=== PATIENT | female | born 1980 | race Caucasian/White ===

== ENCOUNTER 2018-10-25 15:25 | Emergency (ER) | payer SELFPAY ==
[~2018-10-25] VITALS: Ht 160 cm; Wt 68.9 kg
[2018-10-25 15:39] VITALS: BP 137/81
--- NOTE | 2018-10-25 15:48 | PHYS DOC ---
Adult General Chief Complaint Chief Complaint: ABDOMINAL PAIN IN [facility] HPI Patient is a 37 year old [female] who presents with [lower abdominal cramping, small amount of blood in the positive recollecting. Patient reports she is partially weeks , reports changes, 2 weeks ago. Reports at 830 this morning, she had noted a small amount of blood on the toilet paper after wiping. Does report she had intercourse prior to this, this morning. States she has not had this in the past with her other pregnancies, she was a little concerned. Reports she is . Has not followed up with PCP yet. reports all of her pain is very low, near vaginal orifice. States some cramping. Denies abdominal discomfort. ] Review of Systems Review of Systems Constitutional: Denies fever or chills [] Respiratory: Denies cough or shortness of breath [] Cardiovascular: No additional information not addressed in HPI [] GI: Denies abdominal pain, nausea, vomiting, bloody stools or diarrhea [] : Denies dysuria or hematuria, only reports suprapubic discomfort and blood on toilet paper, no blood in urine today [] Musculoskeletal: Denies back pain or joint pain [] Integument: Denies rash or skin lesions [] Neurologic: Denies headache, focal weakness or sensory changes [] Endocrine: Denies polyuria or polydipsia [] All other systems were reviewed and found to be within normal limits, except as documented in this note. Allergies Allergies Allergies Coded Allergies Type Severity Reaction Last Updated Verified Sulfa (Sulfonamide Antibiotics) Allergy Intermediate 10/25/18 Yes Physical Exam Physical Exam Constitutional: Well developed, well nourished, no acute distress, non-toxic appearance. [] HENT: Normocephalic, atraumatic, bilateral external ears normal, oropharynx moist, no oral exudates, nose normal. [] Cardiovascular:Heart rate regular rhythm, no murmur [] Lungs & Thorax: Bilateral breath sounds clear to auscultation, faint wheeze noted to bases[] Abdomen: Bowel sounds normal, soft, no tenderness, no masses, no pulsatile masses. [] Skin: Warm, dry, no erythema, no rash. [] Back: No tenderness, no CVA tenderness. [] Extremities: No tenderness, no cyanosis, no clubbing, ROM intact, no edema. [] Neurologic: Alert and oriented X 3, normal motor function, normal sensory function, no focal deficits noted. [] Psychologic: Affect normal, judgement normal, mood normal. [] Current Patient Data Vital Signs Vital Signs Date Time Temp Pulse Resp B/P (MAP) Pulse Ox O2 Delivery O2 Flow Rate FiO2 10/25/18 15:39 98.6 105 16 137/81 (99) 99 Room Air 98.6 Lab Values Laboratory Tests Test 10/25/18 15:36 10/25/18 15:51 10/25/18 15:58 Urine Collection Type Unknown Urine Color Yellow Urine Clarity Cloudy Urine pH 6.5 Urine Specific [place] 1.025 Urine Protein Negative mg/dL (NEG-TRACE) Urine Glucose (UA) Negative mg/dL (NEG) Urine Ketones (Stick) Negative mg/dL (NEG) Urine Blood Trace (NEG) Urine Nitrite Negative (NEG) Urine Bilirubin Negative (NEG) Urine Urobilinogen Dipstick 1.0 mg/dL (0.2 mg/dL) Urine Leukocyte Esterase Negative (NEG) Urine RBC 0 /HPF (0-2) Urine WBC 0 /HPF (0-4) Urine Amorphous Sediment Present /HPF Urine Bacteria 0 /HPF (0-FEW) White Blood Count 12.4 x10^3/uL (4.0-11.0) H Red Blood Count 5.10 x10^6/uL (3.50-5.40) Hemoglobin 15.3 g/dL (12.0-15.5) Hematocrit 44.6 % (36.0-47.0) Mean Corpuscular Volume 87 fL (79-100) Mean Corpuscular Hemoglobin 30 pg (25-35) Mean Corpuscular Hemoglobin Concent 34 g/dL (31-37) Red Cell Distribution Width 14.5 % (11.5-14.5) Platelet Count 370 x10^3/uL (140-400) Neutrophils (%) (Auto) 68 % (31-73) Lymphocytes (%) (Auto) 22 % (24-48) L Monocytes (%) (Auto) 6 % (0-9) Eosinophils (%) (Auto) 2 % (0-3) Basophils (%) (Auto) 1 % (0-3) Neutrophils # (Auto) 8.5 x10^3/uL (1.8-7.7) H Lymphocytes # (Auto) 2.7 x10^3/uL (1.0-4.8) Monocytes # (Auto) 0.8 x10^3/uL (0.0-1.1) Eosinophils # (Auto) 0.2 x10^3/uL (0.0-0.7) Basophils # (Auto) 0.2 x10^3/uL (0.0-0.2) POC Urine HCG, Qualitative Hcg positive (Negative) Laboratory Tests 10/25/18 15:51 EKG EKG [] Radiology/Procedures Radiology/Procedures Pelvic Exam - No bleeding noted, cervical os noted closed. No discharge or purulence noted in vaginal vault. Gallery Assistant by RN. Well tolerated by patient[] Course & Med Decision Making Course & Med Decision Making Pertinent Labs and Imaging studies reviewed. (See chart for details) [Discussed findings and plan with patient, will consider ultrasound if any cervical changes noted on pelvic exam. Discussed intercourse likely cause of bleeding this morning. Low concern for ectopic , without noted discomfort to abdomen, no additional symptoms, no tachycardia, and cramping dis comfort only. Patient will follow up with OBGYN Following pelvic exam, reassure patient no findings noted in vaginal vault and cervical os appears closed without bleeding noted. Discussed options for blood tests, patient states she doesn't think that's necessary. Discussed intercourse likely cause of bleeding this morning, due to hormonal changes in causing decreased lubrication. Patient instructed to continue to use lubrication. She is taking vitamins, has no concerns over STI.] Dragon Disclaimer Dragon Disclaimer This electronic medical record was generated, in whole or in part, using a voice recognition dictation system. Departure Departure Impression: Primary Impression: Vaginal bleeding during Additional Impression: Hematuria Disposition: HOME, SELF-CARE Condition: GOOD Referrals: NO PCP (PCP) Patient Instructions: Vaginal Bleeding During , First Trimester Additional Instructions: As we discussed, your exam today showed no active bleeding. It is likely the bleeding you experienced this morning was related to intercourse. Try to make sure you are using plenty of lubrication. Continue to take your vitamins. Continue to work on reducing and stopping smoking. Follow up with your OBGYN as soon as you are able. Problem Qualifiers Additional Impression: Hematuria Hematuria type: asymptomatic microscopic Qualified Codes: R31.21 - Asymptomatic microscopic hematuria HERMINIO AMEZQUITA [employer] Oct 25, 2018 15:48
[2018-10-25 16:07] LABS: BILIRUBIN,URINE NEGATIVE (NEG); CLARITY,URINE CLOUDY; COLOR,URINE YELLOW; NITRITE,URINE NEGATIVE (NEG); PH,URINE 6.5; PROTEIN,URINE NEGATIVE (NEG-TRACE)
[2018-10-25 16:07] LABS: BASO # 0.2 x10^3/uL (0.0-0.2); BASO % 1 % (0-3); EOS # 0.2 x10^3/uL (0.0-0.7); EOS % 2 % (0-3); HEMATOCRIT 44.6 % (36.0-47.0); HEMOGLOBIN 15.3 g/dL (12.0-15.5); LYMPH # 2.7 x10^3/uL (1.0-4.8); LYMPH % 22 % (24-48); MEAN CORPUSCULAR HEMOGLOBIN 30 pg (25-35); MEAN CORPUSCULAR HGB CONC 34 g/dL (31-37); MEAN CORPUSCULAR VOLUME 87 fL (79-100); MONO # 0.8 x10^3/uL (0.0-1.1); MONO % 6 % (0-9); NEUT # 8.5 x10^3/uL (1.8-7.7); NEUT % 68 % (31-73); PLATELET COUNT 370 x10^3/uL (140-400); RED CELL DISTRIBUTION WIDTH 14.5 % (11.5-14.5); WHITE BLOOD COUNT 12.4 x10^3/uL (4.0-11.0)
[2018-10-25 16:14] LABS: AMORPHOUS SEDIMENT,UR PRESENT /HPF; BACTERIA,URINE 0 /HPF (0-FEW); RBC,URINE 0 /HPF (0-2); WBC,URINE 0 /HPF (0-4)
== END 2018-10-25 17:35 | disposition home or self-care (01) ==
LOC: ER 15:25
DX: O46.91 Antepartum hemorrhage, unspecified, first trimester (principal); R31.21 Asymptomatic microscopic hematuria; Z3A.08 8 weeks gestation of pregnancy; Z88.2 Allergy status to sulfonamides
CPT/HCPCS: 36415; 81001; 81025; 85025; 99284